=== PATIENT | male | born 1975 | race Caucasian/White ===

== ENCOUNTER 2016-06-15 19:16 | Emergency (ER) | payer MEDICAID, OTHER ==
[~2016-06-15] VITALS: Ht 160 cm; Wt 83.0 kg
[2016-06-15 19:21] VITALS: Ht 160 cm; Wt 83.0 kg
[2016-06-15] MEDS ORDERED: KETOROLAC 60 MG INJ IM STA (21:46)
[2016-06-15] MEDS ORDERED: TRIMETHOPRIM/SULFAMETHOX (DS) TAB PO ONE (22:00)
[2016-06-15] MEDS ORDERED: CEPHALEXIN 500 MG CAP PO ONE (22:00)
[2016-06-15] MEDS ORDERED: IBUP800T25 PO (22:27)
[2016-06-15] MEDS ORDERED: SULF1TAB31 PO (22:27)
[2016-06-15] MEDS ORDERED: CEPH-443 PO (22:27)
--- NOTE | 2016-06-15 22:33 | ERD ---
ER Documentation Chief Complaint Date/Time DATE: 06/15/16 TIME: 22:30 Chief Complaint right toe pain/infection x 4 days HPI 44-year-old male patient with no significant past medical history presents to the ED complaining of a right middle toe infection that started 4 days ago. Reports that it was a little pimple and it started to get itchy and he was rubbing it. States that it might have been a bug bite. States that he has been taking Benadryl with relief of the itchiness. Denies any loss of sensation , loss of range of motion, fever, chills, nausea, vomiting. Denies any trauma or injuries. ROS All systems reviewed and are negative except as per history of present illness. Medications Home Meds Active Scripts Ibuprofen* (Motrin*) 800 Mg Tab, 800 MG PO Q6, #30 TAB take with food Prov:ELIZ SANDOVAL PA-C 06/15/16 Cephalexin* (Keflex*) 500 Mg Capsule, 500 MG PO QID for 7 Days, CAP Prov:ELIZ SANDOVAL PA-C 06/15/16 Sulfamethoxazole/Trimethoprim* (Bactrim Ds* Tablet) 1 Each Tablet, 1 TAB PO BID , #7 TAB Prov:ELIZ SANDOVAL PA-C 06/15/16 Allergies Allergies: Coded Allergies: No Known Allergy (Unverified , 06/15/16) PMhx/Soc Medical and Surgical Hx: pt denies Medical Hx, pt denies Surgical Hx Hx Alcohol Use: No Hx Substance Use: No Hx Tobacco Use: No Smoking Status: Never smoker Physical Exam Vitals Vital Signs Date Time Temp Pulse Resp B/P Pulse Ox O2 Delivery O2 Flow Rate FiO2 06/15/16 19:21 98.3 88 17 143/86 97 Physical Exam Const: [id number]-[id number], well-nourished. In no acute distress. Head: Atraumatic, normocephalic Eyes: Normal Conjunctiva without injection ENT: Normal external ear, nose and mouth. Neck: Full range of motion. No meningismus. Resp: Clear to auscultation bilaterally. No wheezing, rhonchi, rales, or crackles. No accessory muscle use. No retractions. Cardio: Regular rate and rhythm, no murmurs Skin: No petechiae or rashes. Black punctate of right middle toe secondary to possible bug bite with surrounding erythema and edema noted over the dorsal aspect of patient's right foot. Tenderness to palpation of the right dorsal aspect of patient's right foot. No fluctuance, induration, purulent discharge. Back: No midline tenderness. No CVA tenderness. Ext: No cyanosis, or edema. Mid range of motion due to pain. Cap refill less than 2 seconds. Distal pulses intact bilaterally. Neur: Awake and alert. Normal gait and coordination. Muscle strength 5/5. Sensation intact bilaterally. Psych: Normal Mood and Affect Results 24 hrs Current Medications Medications (Trade) Dose Ordered Sig/Mary Route PRN Reason Start Time Stop Time Status Last Admin Dose Admin Trimethoprim/ Sulfamethoxazole (Bactrim (Ds)) 1 tab ONCE ONCE PO 06/15/16 22:00 06/15/16 22:01 DC 06/15/16 21:59 Cephalexin (Keflex) 500 mg ONCE ONCE PO 06/15/16 22:00 06/15/16 22:01 DC 06/15/16 21:59 Ketorolac Tromethamine (Toradol) 60 mg ONCE STAT IM 06/15/16 21:46 06/15/16 21:48 DC 06/15/16 21:59 Procedures/MDM This is a 44-year-old male patient with no significant past medical history presents to the ED complaining of a possible insect bite to his right middle toe that got infected. Patient is afebrile and nontoxic-appearing. Patient has normal vital signs. Patient was treated here in the ED with Bactrim, Keflex and Ketorolac with improvement of his pain and symptoms. Patient will be discharged with a prescription for Bactrim and Keflex and is appropriate for outpatient management for right foot cellulitis. Patient was instructed strictly to return to the ED in 2 days for a wound check. Other differential diagnosis considered include but is not limited to allergic contact dermatitis, urticaria, insect bites, eczema, tinea infection, psoriasis. Low suspicion for scabies, SJS/TEN, erythema multiforme, sepsis, cellulitis, necrotizing fascitis , gangrene, meningococcemia or other emergent conditions. Discharge medications: Ibuprofen, Keflex, Bactrim Follow up with primary care physician in 1-2 days. Instructed patient to return to the ED sooner for any worsening symptoms. Patient's questions were answered. Patient understood and agreed with discharge plan. Patient discharged stable. Departure Diagnosis: Primary Impression: Cellulitis of foot, right Condition: Stable Patient Instructions: Cellulitis, Insect Sting/Bite, Infected Referrals: [facility] YOU HAVE RECEIVED A MEDICAL SCREENING EXAM AND THE RESULTS INDICATE THAT YOU DO NOT HAVE A CONDITION THAT REQUIRES URGENT TREATMENT IN THE EMERGENCY DEPARTMENT. FURTHER EVALUATION AND TREATMENT OF YOUR CONDITION CAN WAIT UNTIL YOU ARE SEEN IN YOUR DOCTORS OFFICE WITHIN THE NEXT 1-2 DAYS. IT IS YOUR RESPONSIBILITY TO MAKE AN APPOINTMENT FOR FOLOW-UP CARE. IF YOU HAVE A PRIMARY DOCTOR --you should call your primary doctor and schedule an appointment IF YOU DO NOT HAVE A PRIMARY DOCTOR YOU CAN CALL OUR PHYSICIAN REFERRAL HOTLINE AT IF YOU CAN NOT AFFORD TO SEE A PHYSICIAN YOU CAN CHOSE FROM THE FOLLOWING [facility] [address] [facility]. [facility] [address] [facility]. [facility] [address] [facility] [address] [facility] [address] [facility]. [facility] [address] [facility]. [facility] YOU HAVE RECEIVED A MEDICAL SCREENING EXAM AND THE RESULTS INDICATE THAT YOU DO NOT HAVE A CONDITION THAT REQUIRES URGENT TREATMENT IN THE EMERGENCY DEPARTMENT. FURTHER EVALUATION AND TREATMENT OF YOUR CONDITION CAN WAIT UNTIL YOU ARE SEEN IN YOUR DOCTORS OFFICE WITHIN THE NEXT 1-2 DAYS. IT IS YOUR RESPONSIBILITY TO MAKE AN APPOINTMENT FOR FOLOW-UP CARE. IF YOU HAVE A PRIMARY DOCTOR --you should call your primary doctor and schedule and appointment IF YOU DO NOT HAVE A PRIMARY DOCTOR YOU CAN CALL OUR PHYSICIAN REFERRAL HOTLINE AT . IF YOU CAN NOT AFFORD TO SEE A PHYSICIAN YOU CAN CHOSE FROM THE FOLLOWING [facility] INSTITUTIONS: [facility] [address] [place] [address] [facility] [address] [place] [address] [facility] [address] [place] [address] [facility] Additional Instructions: Follow up in 2 days in your clinic or here in the ED for wound check. Call your primary care doctor TOMORROW for an appointment during the next 2 days.See the doctor sooner or return here if your condition worsens before your appointment time. ELIZ SANDOVAL PA-C Jun 15, 2016 22:33
== END 2016-06-15 22:39 | disposition home or self-care (01) ==
LOC: EDBD → FTE 19:16
DX: L03.115 Cellulitis of right lower limb (principal)
CPT/HCPCS: J1885; Z7610; 96372

== ENCOUNTER 2016-06-18 09:14 | Emergency (ER) | payer MEDICAID, OTHER ==
[~2016-06-18] VITALS: Ht 157.5 cm; Wt 83.0 kg
[~2016-06-18 09:14] MED LIST: CEPH-443 PO; IBUP800T25 PO; SULF1TAB31 PO
[2016-06-18 09:23] VITALS: Ht 157.5 cm; Wt 83.0 kg
--- NOTE | 2016-06-18 09:47 | ERD ---
ER Documentation Chief Complaint Date/Time DATE: 06/18/16 TIME: 09:41 Chief Complaint ENCOUNTER FOR WOUND CHECK ON RT 3RD TOE HPI 41-year-old male here today for wound check. He was seen here 3 days ago for cellulitis of his right foot. Patient stated that erythema swelling has reduced since he starting antibiotics. He still has pain. Yesterday, the wound started to drain. He has tried to express most of the pus from the wound. Denies fever or chills. ROS All systems reviewed and are negative except as per history of present illness. Medications Home Meds Active Scripts Ibuprofen* (Motrin*) 800 Mg Tab, 800 MG PO Q6, #30 TAB take with food Prov:ELIZ SANDOVAL PA-C 06/15/16 Cephalexin* (Keflex*) 500 Mg Capsule, 500 MG PO QID for 7 Days, CAP Prov:ELIZ SANDOVAL-Junior 06/15/16 Sulfamethoxazole/Trimethoprim* (Bactrim Ds* Tablet) 1 Each Tablet, 1 TAB PO BID , #7 TAB Prov:ELIZ SANDOVAL PA-C 06/15/16 Allergies Allergies: Coded Allergies: No Known Allergy (Unverified , 06/15/16) PMhx/Soc Medical and Surgical Hx: pt denies Medical Hx Hx Alcohol Use: No Hx Substance Use: No Hx Tobacco Use: No Physical Exam Vitals Vital Signs Date Time Temp Pulse Resp B/P Pulse Ox O2 Delivery O2 Flow Rate FiO2 06/18/16 09:23 99.1 75 16 156/96 97 Physical Exam General impression: Well-developed, well-nourished. Alert, oriented, in no acute distress Head: Normocephalic, atraumatic. Eyes: PERRL, EOM normal. Sclerae are normal. Conjunctiva not injected. ENT: External canals patent. TM'sclear. Nasal mucosa, oral mucosa and oropharynx are normal. Neck: Supple, nontender. No lymphadenopathy. No nuchal rigidity. Respiration: Normal respiratory effort. Lungs clear to auscultate bilaterally. No wheezes, rales or rhonchi. Cardiovascular: Regular rate and rhythm. No murmurs or extra heart sounds. Extremities: Dorsal right foot erythematous from the toes to mid foot. Open wound at base of right third toe, with slight purulent drainage. Nonfluctuant. Neurovascularly intact. Neuro: Mental status normal, speech normal. [employer] MANAGER grossly intact. Skin: Normal turgor. No rash or lesions. Psych: Normal mood and affect. Procedures/MDM Well-appearing 41-year-old male presented to ED for wound check of his right foot cellulitis. His cellulitis improved. Wound is currently open and draining , I did not feel further incision and drainage is needed. Patient's wound is cleaned in the ED and dressed. He is advised to continue taking antibiotics as prescribed, and return to the ED in 2 days for another recheck. Low suspicion for necrotizing fasciitis. Patient appears well, stable for discharge and outpatient management. Medical decision making shared with patient and family. Education provided to patient and family. Patient and family expressed understanding of the plan. Medications on discharge: None. Follow-up: Return to eating 2 days for wound check Departure Diagnosis: Primary Impression: Encounter for wound re-check Condition: Good Patient Instructions: Wound Care Referrals: [facility] YOU HAVE RECEIVED A MEDICAL SCREENING EXAM AND THE RESULTS INDICATE THAT YOU DO NOT HAVE A CONDITION THAT REQUIRES URGENT TREATMENT IN THE EMERGENCY DEPARTMENT. FURTHER EVALUATION AND TREATMENT OF YOUR CONDITION CAN WAIT UNTIL YOU ARE SEEN IN YOUR DOCTORS OFFICE WITHIN THE NEXT 1-2 DAYS. IT IS YOUR RESPONSIBILITY TO MAKE AN APPOINTMENT FOR FOLOW-UP CARE. IF YOU HAVE A PRIMARY DOCTOR --you should call your primary doctor and schedule an appointment IF YOU DO NOT HAVE A PRIMARY DOCTOR YOU CAN CALL OUR PHYSICIAN REFERRAL HOTLINE AT IF YOU CAN NOT AFFORD TO SEE A PHYSICIAN YOU CAN CHOSE FROM THE FOLLOWING [facility] [address] [facility]. [facility] [address] [facility]. [facility] [address] [facility]. [facility] [address] [facility]. [facility] [address] [facility]. [facility]. [address] Additional Instructions: Return to this facility in 2 DAYS for a follow-up exam.Return sooner if your condition worsens. DIANE REYES NP Jun 18, 2016 09:47
== END 2016-06-18 10:22 | disposition home or self-care (01) ==
LOC: EDBD 09:14 → FTE 09:14
DX: Z48.00 Encounter for change or removal of nonsurgical wound dressing (principal)
CPT/HCPCS: 99281